=== PATIENT | female | born 1980 | race Two or more races ===

== ENCOUNTER 2018-05-08 10:12 | Inpatient (IN) | payer OTHER ==
[~2018-05-08 10:12] MED LIST: OXYTOCIN 30 UNITS/LR 500 ML BAG IV
[2018-05-08] MEDS ORDERED: CEFAZOLIN 2 GM/50 ML (PMX) 50 ML IVPB (11:00)
[2018-05-08] MEDS ORDERED: OXYTOCIN 30 UNITS/LR 500 ML IV (11:00)
[2018-05-08] MEDS ORDERED: METHYLERGONOVINE 0.2 MG INJ IM ×2 (11:00→18:00)
[2018-05-08] MEDS ORDERED: MISOPROSTOL 200 MCG TAB PR ×2 (11:00→18:00)
[2018-05-08] MEDS ORDERED: CARBOPROST 250 MCG INJ IM ×2 (11:00→18:00)
[2018-05-08] MEDS: LACTATED RINGER'S 1,000 ML IV ×2 (11:01→14:19)
[2018-05-08 11:53] LABS: ADD MAN DIFF? NO
[2018-05-08 12:16] LABS: BASOPHILS % 0.6 % (0.0-2.0); EOSINOPHILS # 0.1 10^3/ul (0.0-0.5); EOSINOPHILS % 0.9 % (0.0-7.0); HEMATOCRIT 35.6 % (37.0-47.0); HEMOGLOBIN 11.1 g/dl (12.0-16.0); LYMPHOCYTES % 14.3 % (15.0-51.0); MEAN CORPUSCULAR HEMOGLOBIN 21.7 pg (29.0-33.0); MEAN CORPUSCULAR HGB CONC 31.2 g/dl (32.0-37.0); MEAN CORPUSCULAR VOLUME 69.7 fl (82.0-101.0); MONOCYTE # 0.6 10^3/ul (0.3-0.9); NEUTROPHIL # 4.9 10^3/ul (1.6-7.5); NEUTROPHILS % 73.2 % (39.0-77.0); PLATELET COUNT 251 10^3/UL (140-415); RED BLOOD COUNT 5.11 10^6/ul (4.20-5.40); RED CELL DISTRIBUTION WIDTH 18.5 % (11.5-14.5)
[2018-05-08 12:16] LABS: WHITE BLOOD COUNT 6.6 10^3/ul (4.8-10.8)
[2018-05-08 12:25] LABS: INR 0.91; PROTIME 12.3 Sec (11.9-14.9)
[2018-05-08 12:26] LABS: PARTIAL THROMBOPLASTIN TIME 30.2 Sec (23.0-35.0)
[2018-05-08] MEDS ORDERED: FENTAnyl 50 MCG/ML VIAL (12:50)
[2018-05-08] MEDS ORDERED: DEXAMETHASONE 4 MG/ML 1 ML INJ (12:50)
[2018-05-08] MEDS ORDERED: morphine SULFATE/PF (10 MG/10 ML) INJ (12:50)
[2018-05-08] MEDS ORDERED: BUPIVACAINE 0.75%/DEXT (SPINAL) 2 ML INJ (12:50)
[2018-05-08] MEDS ORDERED: ONDANSETRON 4 MG INJ (12:50)
[2018-05-08] MEDS ORDERED: DIPHENHYDRAMINE 50 MG INJ (12:50)
[2018-05-08] MEDS ORDERED: PHENYLephrine (100 MCG/ML) 5ML SYG (13:06)
[2018-05-08 13:18] LABS: HEPATITIS B SURFACE ANTIGEN NEGATIVE (NEGATIVE)
[2018-05-08] MEDS ORDERED: ZOLPIDEM 5 MG TAB PO (13:30)
[2018-05-08] MEDS ORDERED: HYDROmorphONE 0.5 MG/0.5 ML SYG IV ×2 (13:30)
[2018-05-08] MEDS ORDERED: DIPHENHYDRAMINE 50 MG INJ IV (13:30)
[2018-05-08] MEDS ORDERED: ONDANSETRON 4 MG INJ IV (13:30)
[2018-05-08] MEDS: IBUPROFEN 600 MG TAB PO (18:00)
[2018-05-08] MEDS: CEFAZOLIN 1 GM/50 ML (PMX) 50 ML IVPB (18:17)
[2018-05-08] MEDS: OXYTOCIN 30 UNITS/LR 500 ML IV ×2 (18:19→23:15)
[2018-05-08 22:30] LABS: RAPID PLASMA REAGIN NONREACTIVE (NR)
[2018-05-09] MEDS: OXYTOCIN 30 UNITS/LR 500 ML IV ×6 (03:17→21:35)
[2018-05-09] MEDS: IBUPROFEN 600 MG TAB PO ×4 (06:00→17:59)
[2018-05-09 08:19] LABS: ADD MAN DIFF? NO
[2018-05-09 08:26] LABS: BASOPHILS % 0.2 % (0.0-2.0); EOSINOPHILS % 0.3 % (0.0-7.0); HEMATOCRIT 30.2 % (37.0-47.0); HEMOGLOBIN 9.6 g/dl (12.0-16.0); LYMPHOCYTES # 1.3 10^3/ul (0.8-2.9); LYMPHOCYTES % 13.2 % (15.0-51.0); MEAN CORPUSCULAR HEMOGLOBIN 22.2 pg (29.0-33.0); MEAN CORPUSCULAR HGB CONC 31.8 g/dl (32.0-37.0); MEAN CORPUSCULAR VOLUME 69.7 fl (82.0-101.0); MEAN PLATELET VOLUME 9.5 fl (7.4-10.4); MONOCYTE # 1.1 10^3/ul (0.3-0.9); MONOCYTES % 10.7 % (0.0-11.0); NEUTROPHIL # 7.4 10^3/ul (1.6-7.5); NEUTROPHILS % 74.1 % (39.0-77.0); PLATELET COUNT 216 10^3/UL (140-415); RED BLOOD COUNT 4.33 10^6/ul (4.20-5.40); RED CELL DISTRIBUTION WIDTH 18.3 % (11.5-14.5)
[2018-05-09] MEDS: SENNA/DOCUSATE NA (8.6MG/50MG) TAB PO ×2 (08:29→21:03)
[2018-05-09] MEDS: KETOROLAC 30 MG INJ IV (12:39)
[2018-05-09] MEDS ORDERED: OXYCODONE/ACETAMINOPHEN (5/325) TAB PO (15:00)
[2018-05-10] MEDS: IBUPROFEN 600 MG TAB PO ×4 (00:22→17:24)
[2018-05-10] MEDS: OXYTOCIN 30 UNITS/LR 500 ML IV ×6 (01:35→21:35)
[2018-05-10] MEDS: SENNA/DOCUSATE NA (8.6MG/50MG) TAB PO ×2 (09:28→20:04)
[2018-05-10] MEDS: OXYCODONE/ACETAMINOPHEN (5/325) TAB PO (20:04)
[2018-05-11] MEDS: IBUPROFEN 600 MG TAB PO ×3 (00:30→11:35)
[2018-05-11] MEDS: OXYTOCIN 30 UNITS/LR 500 ML IV ×3 (01:35→09:35)
[2018-05-11] MEDS: OXYCODONE/ACETAMINOPHEN (5/325) TAB PO (02:42)
[2018-05-11] MEDS: DIPHTH/TET/ACEL PERTUSS (ADULT) 0.5 ML VIAL IM* (09:00)
[2018-05-11] MEDS: SENNA/DOCUSATE NA (8.6MG/50MG) TAB PO (10:11)
== END 2018-05-11 14:05 | disposition home or self-care (01) | DRG 788 ==
LOC: L-D 10:12 → PP1 17:03
PROVIDERS: Obstetrics & Gynecology
PROC: 10D00Z1 Extraction of Products of Conception, Low, Open Approach (ICD-10-PCS; principal; 2018-05-08 12:30)
DX: O34.211 Maternal care for low transverse scar from previous cesarean delivery (principal); Z3A.39 39 weeks gestation of pregnancy; Z37.0 Single live birth
CPT/HCPCS: 85025; 85610; 85730; 86592; 86850; 86900; 86901; 87340; 90686; 90715; 99464